=== PATIENT | male | born 1995 | race Caucasian/White ===

== ENCOUNTER 2017-10-03 00:51 | Emergency (ER) | payer MEDICAID | END 2017-10-03 02:27 | disposition home or self-care (01) | LOC: D.ER 00:51 | DX: S60.221A Contusion of right hand, initial encounter (principal); W22.01XA Walked into wall, initial encounter; Y93.89 Activity, other specified; Y92.029 Unspecified place in mobile home as the place of occurrence of the external cause; F17.200 Nicotine dependence, unspecified, uncomplicated ==

== ENCOUNTER 2018-01-08 21:43 | Emergency (ER) | payer MEDICAID | END 2018-01-08 23:30 | disposition home or self-care (01) | LOC: D.ER 21:43 | DX: S91.302A Unspecified open wound, left foot, initial encounter (principal); W34.00XA Accidental discharge from unspecified firearms or gun, initial encounter; Y93.89 Activity, other specified; Y92.019 Unspecified place in single-family (private) house as the place of occurrence of the external cause; S92.412A Displaced fracture of proximal phalanx of left great toe, initial encounter for closed fracture ==